=== PATIENT | male | born 1945 | race Two or more races ===

== ENCOUNTER 2018-04-15 13:54 | Outpatient (CLI) | payer OTHER | END 2018-04-15 14:12 | disposition home or self-care (01) | LOC: RAD 501 13:54 | DX: M06.4 Inflammatory polyarthropathy (principal); M79.672 Pain in left foot ==

== ENCOUNTER 2018-12-27 10:04 | Outpatient (CLI) | payer OTHER | END 2018-12-27 10:30 | disposition home or self-care (01) | LOC: RAD 10:04 → MAMO-SONO 10:15 → RAD 10:30 | DX: N41.8 Other inflammatory diseases of prostate (principal); N40.0 Benign prostatic hyperplasia without lower urinary tract symptoms; M54.5 Low back pain ==

== ENCOUNTER 2021-01-19 08:00 | Outpatient (CLI) | payer OTHER | END 2021-01-19 08:30 | disposition home or self-care (01) | LOC: PPH VACUNA 08:00 | DX: Z23 Encounter for immunization (principal) ==

== ENCOUNTER 2021-08-23 08:00 | Outpatient (CLI) | payer OTHER | END 2021-08-23 08:30 | disposition home or self-care (01) | LOC: PPH VACUNA 08:00 | PROVIDERS: ATTEND Emergency Medicine Pediatric Emergency Medicine | DX: Z23 Encounter for immunization (principal) ==

== ENCOUNTER 2022-02-21 10:20 | Outpatient (CLI) | payer OTHER | END 2022-02-21 10:30 | disposition home or self-care (01) | LOC: PPH VACUNA 10:20 | PROVIDERS: ATTEND Emergency Medicine Pediatric Emergency Medicine | DX: Z23 Encounter for immunization (principal) ==